=== PATIENT | male | born 1985 | race Caucasian/White ===

== ENCOUNTER → 2016-09-11 | Outpatient (CLI) | payer BC, OTHER ==
--- NOTE | ~2016-09-11 | 24HR ---
[address] [address] [place] [address] 24 HR ELECTROCARDIOGRAM REPORT Name: JC CRAFT Room #: REG COUNTS INCLUDE 234 BEDS AT THE [facility].#: [id number] Admission: 09/11/16 Attend Phys: Paul Wilder MD Discharge: Date of : 83 Date of Service: 09/11/16 1420 Report #: [id number] THIS REPORT FOR: //name// 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
== END ==
LOC: CV 13:54
DX: R00.2 Palpitations (principal)